=== PATIENT | female | born 1985 | race Caucasian/White ===

== ENCOUNTER → 2023-04-13 13:10 | Outpatient (CLI) | payer OTHER, SELFPAY ==
--- NOTE | 2023-04-13 13:19 | DI.RAD.S_ITS ---
PROCEDURE: FL SHOULDER INJECTION MR/CT RT INDICATIONS: RIGHT SHOULDER PAIN COMPARISON: [facility], MR, MR SHOULDER RT W CON, 04/13/2023, 14:43. TECHNIQUE: The indications, alternatives, benefits, risks, and complications of the procedure were explained to the patient. Written informed consent was obtained and placed in the chart. The shoulder was examined fluoroscopically and a site for needle placement chosen for entry into the glenohumeral joint from an anterior approach. The skin was prepped and draped in a sterile fashion, and 1% lidocaine infiltrated from skin down to joint capsule. A spinal needle was inserted into the glenohumeral joint, and a small amount of iodinated contrast media injected to confirm intra-articular placement of the needle tip. This was followed by approximately 12 mL dilute solution of a gadolinium containing MR contrast agent. The needle was removed and a dressing was applied. The patient was given postprocedural instructions and sent to the MR suite for MR imaging. FINDINGS: A single fluoroscopic spot image demonstrates intra-articular location of injected iodinated contrast. IMPRESSION: Successful fluoroscopically guided administration of dilute Gadolinium solution into the shoulder joint for MR arthrogram. Dictated by: Devin John M.D. on 04/13/2023 at 16:26 Approved by: Devin John M.D. on 04/13/2023 at 16:27
--- NOTE | 2023-04-13 13:20 | DI.MRI.S_ITS ---
PROCEDURE: MR SHOULDER RT W CON INDICATIONS: RIGHT SHOULDER PAIN TECHNIQUE: After the administration of 12 mL of dilute intra-articular Gadolinium contrast, oblique coronal T1 and T2 spin echo with fat saturation, oblique sagittal T1 spin echo with and without fat saturation, oblique sagittal T2 fast spin echo with fat saturation, axial T1 spin echo with fat saturation through the shoulder. COMPARISON: None. FINDINGS: Image quality: Excellent. Rotator cuff: Distal supraspinatus tendinosis and low-grade bursal surface partial-thickness tear involving supraspinatus near musculotendinous junction is seen. The infraspinatus and subscapularis tendons are intact. No full-thickness rotator cuff tendon rupture. No rotator cuff muscle atrophy on sagittal images. Bones and bursae: No bone marrow contusions or fractures. No acromioclavicular joint degeneration. The acromion demonstrates conventional anatomy, without an os acromiale. Capsule and soft tissues: The labrum and glenohumeral ligaments appear intact. Sublabral foramen is seen which is a normal variant. The long head of the biceps tendon demonstrates normal location and morphology. The rotator interval appears normal, without fibrosis. The coracohumeral ligament is of normal thickness. No intra-articular bodies. IMPRESSION: 1. Distal supraspinatus tendinosis. Low-grade bursal surface partial-thickness tear involving supraspinatus near musculotendinous junction. No full-thickness rotator cuff tendon rupture. 2. No marrow edema. No fracture or dislocation. No intra-articular loose bodies. 3. No evidence of focal labral tear. Presence of sublabral foramen. Dictated by: Steven France M.D. on 04/13/2023 at 15:59 Approved by: Steven France M.D. on 04/13/2023 at 16:15
== END ==
PROVIDERS: Referring Provider Naturopath; Visit Provider Naturopath
DX: M75.111 Incomplete rotator cuff tear or rupture of right shoulder, not specified as traumatic (principal); M25.511 Pain in right shoulder
CPT/HCPCS: 23350; 73222; 77002